=== PATIENT | male | born 2000 | race Two or more races ===

== ENCOUNTER 2023-07-31 08:53 | Emergency (ER) | payer BC, OTHER ==
[~2023-07-31] VITALS: Ht 175.3 cm; Wt 10.5 kg
[2023-07-31 09:58] VITALS: BP 130/81; PULSE 109; RESP 16; TEMP 97.1; O2SAT 99
[2023-07-31] MEDS ORDERED: AZIT500T66 PO (10:10)
[2023-07-31] MEDS ORDERED: LIDO2SOL26 MT (10:10)
== END 2023-07-31 10:36 | disposition home or self-care (01) ==
LOC: ER 08:53
DX: J03.90 Acute tonsillitis, unspecified (principal); Z79.899 Other long term (current) drug therapy
CPT/HCPCS: 82962